=== PATIENT | male | born 1960 | race Caucasian/White ===

== ENCOUNTER 2016-11-30 20:40 | Emergency (ER) | payer BC, OTHER ==
[~2016-11-30 20:40] MED LIST: ASPI81TA82 PO
[2016-11-30 20:48] VITALS: PULSE 92; RESP 20; TEMP 98.2; O2SAT 94
[2016-11-30] MEDS ORDERED: ACETAMINOPHEN 500 MG CPLT PO ONE (21:15)
--- NOTE | 2016-11-30 21:27 | PD ---
HPI Chief Complaint: Musculoskeletal Complaint Time Seen by Provider: 20:59 Travel History International Travel<30 days: No Contact w/Intl Traveler<30days: No Traveled to known affect area: No History of Present Illness HPI Patient is a 56-year-old male presents emergency Department with left ankle pain after injuring it during softball tonight. Patient states he was running and felt a pop in his ankle and has been having extreme pain with rotating his ankle and difficulty ambulating since the event. Patient had a recent diagnosis of an abscess on the same ankle in the left side. He states that this is been healing well after was spontaneously drained. Denies any fever denies rolling his ankle denies any injury to his head neck back chest abdomen or pelvis. Incident happened just prior to arrival. PFSH Past Medical History Medical History: Denies Significant Hx Cancer: No Cardiovascular Problems: No Endocrine: No Genitourinary: No Immune Disorder: No Musculoskeletal: No Neurologic: No Psychiatric: No Reproductive: No Respiratory: No Tetanus Vaccination: > 5 Years Influenza Vaccination: Yes Past Surgical History Surgical History: No Previous Surgery Social History Alcohol Use: No Tobacco Use: No Substance Use: No Allergies-Medications (Allergen,Severity, Reaction): Coded Allergies: Codeine (Unverified Adverse Reaction, Severe, "Feel bad" , 11/30/16) Uncoded Allergies: Opiates (Adverse Reaction, Severe, Former addict, 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 SKIN: Focused skin assessment warm/dry. HEAD: Normocephalic. EYES: No scleral icterus. No injection or drainage. NECK: Supple, trachea midline. No JVD or lymphadenopathy. CARDIOVASCULAR: Regular rate and rhythm without murmurs, gallops, or rubs. RESPIRATORY: Breath sounds equal bilaterally. No accessory muscle use. GASTROINTESTINAL: Abdomen soft, non-tender, nondistended. MUSCULOSKELETAL: No cyanosis, or edema. There is some soft tissue swelling over the lateral malleolus of the left ankle. There is a small wound which is healing well. Minimal fluctuance. No surrounding erythema, likely represents a healing abscess. There is no laxity of the left ankle, there is some tenderness with forced inversion. This an tenderness over the tip of the lateral malleolus. Proximal tib-fib is nontender, knee normal, foot normal, pulse motor and sensory intact distally in all 4 extremity's. There is some small abrasions in the left leg consistent with sliding during softball. BACK: Nontender without obvious deformity. No CVA tenderness. Data Data Last Documented VS Vital Signs Date Time Temp Pulse Resp B/P Pulse Ox O2 Delivery O2 Flow Rate FiO2 11/30/16 20:48 98.2 92 20 94 Orders Ankle, Complete ([id number]) (11/30/16 ) Acetaminophen (Tylenol) (11/30/16 21:15) Dirk Bandage (11/30/16 21:27) Crutches (11/30/16 21:58) MDM Medical Decision Making Medical Screen Exam Complete: Yes Emergency Medical Condition: Yes Differential Diagnosis Ankle strain and sprain, ankle fracture, osteomyelitis highly unlikely, foot infection highly unlikely, ankle infection highly unlikely. Narrative Course Patient was roomed in emergency department, minimal soft tissue swelling over the left ankle, this could be consistent with a healing abscess or an acute sprain of the lateral aspect of the ankle. Patient's x-rays were negative for acute bony abnormality but did suggest ankle sprain: Last 24 hours Impressions Ankle X-Ray 11/30/16 0000 Signed Impressions: Service Date/Time: November 21:12 - CONCLUSION: 1. No fracture seen. 2. Lateral soft tissue swelling about the ankle and 2 small calcific densities represent either avulsion injury or radiopaque foreign bodies. Royce David MD This was discussed with the patient and recommended Dirk wrap crutches with partial weightbearing and expect 4-6 weeks of healing, recommend he abstain from softball during this time and follow up with a primary care physician to arrange for MRI if he doesn't feel better in that time. He verbalized understanding. Given Tylenol in the emergency department. Stable for discharge this time. Discussed return to ED criteria including spreading redness fever or worsening pain. Diagnosis Primary Impression: Ankle sprain Qualified Code: S93.402A - Sprain of left ankle, unspecified ligament, initial encounter Patient Instructions: General Instructions, RICE Therapy (GEN) Additional Instructions: Return to the emergency department if there is any fevers increased swelling or increased pain to the left ankle. Use crutches for partial weightbearing and to advance as tolerated. Follow-up with orthopedics or your primary care physician in 4-6 weeks if your pain is not getting any better for consideration of MRI. Scripts No Active Prescriptions or Reported Meds Disposition: 01 DISCHARGE HOME Condition: Stable Eduin Jimenez MD Nov 30, 2016 21:27
--- NOTE | 2016-11-30 21:41 | RADRPT ---
EXAM DATE/TIME: 11/30/2016 21:12 [facility] COMPARISON: No previous studies available for comparison. INDICATIONS : Left ankle pain on lateral side. Patient states his ankle gave out on him. MEDICAL HISTORY : None. SURGICAL HISTORY : None. ENCOUNTER: Initial ACUITY: 1 day PAIN SCORE: 8/10 LOCATION: Left lateral ankle FINDINGS: Three-view examination of the ankle is performed. There is mild lateral soft tissue swelling. Withi n the soft tissues, there are 2 small calcific densities just lateral to the distal fibula, seen only on the oblique view. This could represent radiopaque foreign bodies. Ankle mortise is intact. No fractures seen. There is a large retrocalcaneal spur. CONCLUSION: 1. No fracture seen. 2. Lateral soft tissue swelling about the ankle and 2 small calcific densities represent either avuls ion injury or radiopaque foreign bodies. Royce Daivd MD on November 30, 2016 at 21:37 Board Certified Radiologist. This report was verified electronically.
== END 2016-11-30 22:05 | disposition home or self-care (01) ==
LOC: PHEFT 20:40
DX: S93.402A Sprain of unspecified ligament of left ankle, initial encounter (principal); X58.XXXA Exposure to other specified factors, initial encounter; Y93.64 Activity, baseball
CPT/HCPCS: 73610; 99283; E0113